=== PATIENT | female | born 1970 | race Caucasian/White ===

== ENCOUNTER → 2021-07-08 | Day surgery (SDC) | payer OTHER ==
[~2021-07-08] VITALS: Ht 160 cm; Wt 74.8 kg
[~2021-07-08] MED LIST: ASCORBIC ACID500 MG PO; EMERGEN-C 500500 MG PO; MUCINEX 600MG600 MG PO; MULTIPLE VITAM1 EACH PO; PRILOSEC20 MG PO; SINGULAIR10 MG PO; SYMBICORT 80-10.2 GM INH; VENTOLIN (2.5 MG/3 M INH; VITAMIN D310 MC4 PO
== END | disposition home or self-care (01) ==
LOC: FAS 06:03
DX: M65.312 Trigger thumb, left thumb (principal); M65.9 Synovitis and tenosynovitis, unspecified
CPT/HCPCS: J2250; J2405; J2704; J3010; J7120